=== PATIENT | female | born 1995 | race Caucasian/White ===

== ENCOUNTER 2024-02-25 14:03 | Emergency (ER) | payer OTHER, SELFPAY ==
[2024-02-25 14:05] VITALS: BP 143/101
[2024-02-25 14:45] LABS: Carboxyhemoglobin 1.9 %
--- NOTE | 2024-02-25 14:52 | ED.GENMED ---
History of Present Illness
General
Chief Complaint: Exposure-Chemical
Time Seen by Provider: 02/25/24 14:11
Travel History
Have you had any contact with someone who has COVID-19?: No
Do you have any symptoms of coronavirus? Fever > 100 degrees, chills, cough, shortness of breath, sore throat, loss of taste or smell, muscle aches, or headache?: No
History of Present Illness
History of Present Illness:
28-year-old otherwise healthy female presents to the emergency department for evaluation of nausea, headache, and lightheadedness that began at approximately 10:30 AM this morning. Patient states she felt that she was to leave work, was notified
shortly after leaving at her work building was evacuated for suspected gas leak approximately 1 hour later. She feels better but symptoms are not fully resolved as of this time. Denies any chest pain or fevers recently
Review of Systems
Review of Systems
Allergies reviewed?: Yes
All Other Systems: ROS reviewed and negative except as documented in HPI and ROS
Phy Exam
Physical Exam
Physical Exam:
GEN: Well appearing, NAD, WDWN
HEENT: Oral mucosa moist, no scleral icterus
Cardiac: Regular rate and rhythm, no murmurs
Lung: No respiratory distress, no tachypnea, lungs clear to auscultation bilaterally
MSK: No gross deformity or injuries
Skin: Good color, no pallor or jaundice, no rashes
Neuro: AO x3, moves all extremities freely
Psych: Calm, cooperative
Course
Orders/Labs/Results
Orders:
Orders
02/25/24 14:17
Electrocardiogram (*1) Urgent
Reason for Study: QTc Monitoring
EKG- Treatment ONCE
02/25/24 14:32
Carboxyhemoglobin Urgent
Vital Signs
Initial and Last Documented VS:
Initial Vital Signs
Temp Pulse Resp BP Pulse Ox
98.5 F 98 18 143/101 99
02/25/24 14:05 02/25/24 14:05 02/25/24 14:05 02/25/24 14:05 02/25/24 14:05
Last Documented Vital Signs
Temp Pulse Resp BP Pulse Ox
98.5 F 72 18 119/86 100
02/25/24 14:05 02/25/24 15:15 02/25/24 15:15 02/25/24 15:15 02/25/24 15:15
MDM/Problems Addressed
MDM/Problems Addressed:
EKG independently interpreted by me is unremarkable, QTc is normal. Carboxyhemoglobin level is negative, patient feeling proved after brief time supplemental oxygen, suspect this was due to the reported gas leak but now that she is asymptomatic she
is suitable for discharge
*Critical Care Note
Total Time (30-74mins, 75-104mins- exclusive of procedures): Not Applicable
ED Attending Note
-
Portions of this chart may have been created with voice recognition software.� Occasional wrong word or��sound alike� substitutions may have occurred due to the inherent limitations of voice recognition software.
Discharge Plan
Departure
Patient Disposition: Home (Routine Discharge)
Date of Disposition: 02/25/24
Time of Disposition: 15:02
Patient with high blood pressure during this ER visit?: No
Discharge Problem:
Carbon monoxide exposure
Instructions: Carbon Monoxide Poisoning (DC)
Interventions
Interventions:
*Risk Screen - Suicide Last Done: 02/25/24 14:05
*General Assessment Last Done: 02/25/24 14:05
*Neglect/Abuse Screening Last Done: 02/25/24 14:05
ED- Fall Risk Assessment Last Done: 02/25/24 14:38
*ED COVID-19 Vaccine History Last Done: 02/25/24 14:38
*Nursing Disposition Last Done: 02/25/24 15:17
ED-EENT Assessment Last Done: 02/25/24 14:39
ED- Pulmonary Assessment Last Done: 02/25/24 14:38
ED-Skin Assessment Last Done: 02/25/24 14:38
Discharge Date and Time
Discharge Date/Time: 02/25/24 15:18
Print Language: WELSH
[2024-02-25 15:15] VITALS: BP 119/86
== END 2024-02-25 15:18 | disposition home or self-care (01) ==
LOC: EMR 14:03
PROVIDERS: Physician Assistant; EMERGENCY PHYSICIAN Emergency Medicine; FAMILY PHYSICIAN Nurse Practitioner Family
DX: R51.9 Headache, unspecified (principal); R11.0 Nausea; R42 Dizziness and giddiness; T58.11XA Toxic effect of carbon monoxide from utility gas, accidental (unintentional), initial encounter
CPT/HCPCS: 99284; 82375; 93005

== ENCOUNTER 2024-08-30 15:11 | Emergency (ER) | payer OTHER, SELFPAY ==
[2024-08-30 15:13] VITALS: BP 146/97
[2024-08-30 15:32] LABS: Urine Albumin Trace (Neg - Trace); Urine Bilirubin Negative (Negative); Urine Character Very Cloudy (Clear); Urine Color Yellow; Urine Glucose Negative (Negative); Urine Ketone 3+ (Negative); Urine Leukocyte Trace (Negative); Urine Nitrite Negative (Negative); Urine Occult Blood 1+ (Negative); Urine Specific Gravity 1.025 (<1.030); Urine Urobilinogen Negative (Neg - 1+)
[2024-08-30 16:09] LABS: Urine Bacteria Few (Negative); Urine Squamous Cell 16-20 /LPF (Few)
[2024-08-30 18:09] VITALS: BP 127/79
[2024-08-30] MEDS: NSS 1000 IV (18:31)
[2024-08-30] MEDS: TORADOL 15 MG IV (18:31)
[2024-08-30 18:50] LABS: % Basophils 0.6 % (0-2); % Immature Granulocytes 0.3 % (0-0.5); % Lymphocytes 26.8 % (20.5-51.1); % Monocytes 11.7 % (1.7-9.3); % Neutrophils 60.6 % (42.2-75.2); Absolute Lymphocytes 0.9 10^3/uL (1.2-3.4); Absolute Monocytes 0.4 10^3/uL (0.1-0.6); Hematocrit 36.5 % (37.0-47.0); Hemoglobin 12.4 g/dL (12.0-16.0); Mean Corpuscular Volume 88.4 fL (81.0-99.0); Mean Platelet Volume 9.8 fL (7.4-10.4); Nucleated Red Blood Cells % 0 %; Platelet Count 156 10^3/uL (130-400); Red Blood Cell Count 4.13 10^6/uL (4.20-5.40); Red Cell Dist. Width 11.5 % (11.5-14.5); White Blood Cell Count 3.3 10^3/uL (4.8-10.8)
[2024-08-30 18:59] LABS: HCG, Serum Qualitative Screen Negative
[2024-08-30 19:02] LABS: Monotest Positive (Negative)
[2024-08-30 19:03] LABS: ALT (SGPT) 17 U/L (0-35); AST (SGOT) 25 U/L (14-36); Alkaline Phosphatase 40 U/L (38-126); Blood Urea Nitrogen 10 mg/dl (7-17); Calcium 8.2 mg/dl (8.4-10.2); Carbon Dioxide 19 mmol/L (22-30); Chloride 102 mmol/L (98-107); Glucose 82 mg/dl (70-99); Potassium 3.4 mmol/L (3.5-5.1); Sodium 133 mmol/L (135-145); Total Bilirubin 0.3 mg/dl (0.2-1.3); Total Protein 6.6 g/dl (6.3-8.2); eGFR > 60.00
--- NOTE | 2024-08-30 19:56 | ED.GENMED ---
History of Present Illness
General
Chief Complaint: Fever
Source: patient
Exam Limitations: none
Time Seen by Provider: 08/30/24 17:39
Nursing documentation reviewed up to this point in time: agreed with
History of Present Illness
History of Present Illness:
Patient presents to ED secondary to 3-day history of fever, chills, lower back pain, left upper abdominal pain, and decreased appetite, as well as body ache. Today, patient started to experience pain behind both of her eyes. Denies nausea,
vomiting, or diarrhea. Denies rash. Denies sore throat. Denies coughing. Denies sick contact. Denies recent travel
Review of Systems
Review of Systems
Allergies reviewed?: Yes
All Other Systems: ROS reviewed and negative except as documented in HPI and ROS
Constitutional: Reports fever and chills
EENT: Reports no symptoms
Respiratory: Reports no symptoms
Cardiac: Reports no symptoms
ABD/GI: Reports abdominal pain
Musculoskeletal: Reports back pain
Skin: Reports no symptoms
Neurological: Reports headache
Phy Exam
Physical Exam
Physical Exam:
Physical Exam
General: mild distress, not acutely ill. febrile
Head: nc/at. eomi
Neck: supple. no meningeal signs.
Heart: s1/s2 regular rate and rhythm, no murmur. equal radial pulses.
Lungs: no acute respiratory distress. clear bilaterally
Abdomen: normal bowel sounds. not tender.
Back: no cva tenderness
Neuro: alert and oriented. no focal neurological deficits
Skin: no rash
Psychiatric: well kept. interactive and cooperative
Extremities: no edema. no calf tenderness.
Course
Orders/Labs/Results
Orders:
Orders
08/30/24 15:16
CR Chest - 2 Views Urgent
Comment:
Reason For Exam: cough
08/30/24 15:20
Urine Culture Reflexed from UA [Urinalysis Reflex To Culture] Urgent
Date Specimen was Collected: 08/30/24
Time Specimen was Collected: 15:16
Urine Microscopic Reflex Cult Urgent
Urine Culture Urgent
FARHANA Source: U
Specimen Description:
Date Specimen was Collected: 08/30/24
Time Specimen was Collected: 15:16
Comment: ADD ON PER DR
08/30/24 18:25
Test Result ONCE
08/30/24 18:26
0.9% Sodium Chloride 1000 ml [Nss] 1,000 ml IV BOLUS
Ketorolac [Toradol] 15 mg IV NOW STA
08/30/24 18:27
Add On - Microbiology Urgent
Tests Added?: urine culture
08/30/24 18:30
Complete Blood Count/With Diff Urgent
Comprehensive Metabolic Panel Urgent
HCG, Serum Qualitative Screen Urgent
Magnesium Urgent
Monotest Urgent
Abnormal Lab Results
08/30/24 08/30/24
15:20 18:30
WBC 3.3 L 10^3/uL
(4.8-10.8)
RBC 4.13 L 10^6/uL
(4.20-5.40)
Hct 36.5 L %
(37.0-47.0)
Absolute Lymphs (auto) 0.9 L 10^3/uL
(1.2-3.4)
Monocytes % 11.7 H %
(1.7-9.3)
Sodium 133 L mmol/L
(135-145)
Potassium 3.4 L mmol/L
(3.5-5.1)
Carbon Dioxide 19 L mmol/L
(22-30)
Calcium 8.2 L mg/dl
(8.4-10.2)
Urine Ketones 3+ A
(Negative)
Ur Occult Blood Reflex 1+ A
(Negative)
Leukocyte Esterase Rfl Trace A
(Negative)
Urine RBC 3-6 A /HPF
(0-2)
Urine Bacteria (Reflex) Few A
(Negative)
Monoscreen Positive A
(Negative)
08/30/24 18:30
08/30/24 18:30
Vital Signs
Initial and Last Documented VS:
Initial Vital Signs
Temp Pulse Resp BP Pulse Ox
100.2 F 101 20 146/97 98
08/30/24 15:13 08/30/24 15:13 08/30/24 15:13 08/30/24 15:13 08/30/24 15:13
Last Documented Vital Signs
Temp Pulse Resp BP Pulse Ox
99.7 F 83 20 116/75 99
08/30/24 18:09 08/30/24 20:26 08/30/24 15:13 08/30/24 20:26 08/30/24 20:26
MDM/Problems Addressed
MDM/Problems Addressed:
History, exam, and blood work consistent with symptoms secondary to mononucleosis. Otherwise, patient is hemodynamically stable and nontoxic-appearing. Potential splenomegaly discussed with patient prior to discharge, as well as continued fluid
administration at home, as well as PCP follow-up.
*Critical Care Note
Total Time (30-74mins, 75-104mins- exclusive of procedures): Not Applicable
ED Attending Note
-
Portions of this chart may have been created with voice recognition software.� Occasional wrong word or��sound alike� substitutions may have occurred due to the inherent limitations of voice recognition software.
Discharge Plan
Departure
Patient Disposition: Home (Routine Discharge)
Date of Disposition: 08/30/24
Time of Disposition: 20:02
Patient with high blood pressure during this ER visit?: Yes
Condition: Good
Discharge Problem:
Mononucleosis
Instructions: Mononucleosis
Referrals:
Tiffanie Jarvis, DO [Family Provider] -
Activity Restrictions/Additional Instructions:
As discussed, please follow-up with your primary care physician with any further concerns.
Interventions
Interventions:
*Risk Screen - Suicide Last Done: 08/30/24 18:34
*General Assessment Last Done: 08/30/24 15:13
*Neglect/Abuse Screening Last Done: 08/30/24 18:34
ED- Fall Risk Assessment Last Done: 08/30/24 18:34
*ED COVID-19 Vaccine History Last Done: 08/30/24 18:34
*Nursing Disposition Last Done: 08/30/24 20:26
ED- Neurological Assessment Last Done: 08/30/24 18:34
ED-Skin Assessment Last Done: 08/30/24 18:34
Discharge Date and Time
Discharge Date/Time: 08/30/24 20:26
Print Language: ALBANIAN
[2024-08-30 20:26] VITALS: BP 116/75
== END 2024-08-30 20:26 | disposition home or self-care (01) ==
LOC: EMR 15:11
PROVIDERS: EMERGENCY PHYSICIAN Emergency Medicine; FAMILY PHYSICIAN Family Medicine
DX: B27.90 Infectious mononucleosis, unspecified without complication (principal)
CPT/HCPCS: 96374; 96361; 99284; 71046; 80053; 81003; 81015; 83735; 84703; 85025; 86308; 87086